=== PATIENT | male | born 1985 | race Caucasian/White ===

== ENCOUNTER 2018-09-04 08:18 | Emergency (ER) | payer OTHER, MEDICAID ==
[2018-09-04] MEDS: ONDANSETRON 4 MG INJ IV (08:32)
[2018-09-04] MEDS: SOD CHLORIDE 0.9% 1,000 ML IV (08:32)
[2018-09-04] MEDS: LORAZEPAM 2 MG INJ IV (08:32)
[2018-09-04] MEDS: HYDROmorphONE 1 MG/ML SYG IV (08:32)
[2018-09-04 08:50] LABS: ADD MAN DIFF? NO
[2018-09-04 08:51] LABS: ABNORMAL IP MESSAGE 1; BASOPHIL # 0.1 10^3/ul (0.0-0.1); BASOPHILS % 0.4 % (0.0-2.0); EOSINOPHILS # 0.1 10^3/ul (0.0-0.5); EOSINOPHILS % 0.4 % (0.0-7.0); HEMATOCRIT 42.1 % (42.0-52.0); HEMOGLOBIN 14.7 g/dl (14.0-18.0); LYMPHOCYTES % 8.7 % (15.0-51.0); MEAN CORPUSCULAR HEMOGLOBIN 29.2 pg (29.0-33.0); MEAN CORPUSCULAR HGB CONC 34.9 g/dl (32.0-37.0); MEAN CORPUSCULAR VOLUME 83.7 fl (82.0-101.0); MEAN PLATELET VOLUME 10.2 fl (7.4-10.4); MONOCYTE # 1.9 10^3/ul (0.3-0.9); MONOCYTES % 8.2 % (0.0-11.0); NEUTROPHIL # 18.5 10^3/ul (1.6-7.5); PLATELET COUNT 225 10^3/UL (140-415); POSITIVE DIFF @See below; RED BLOOD COUNT 5.03 10^6/ul (4.70-6.10); RED CELL DISTRIBUTION WIDTH 12.3 % (11.5-14.5)
[2018-09-04 08:51] LABS: WHITE BLOOD COUNT 22.9 10^3/ul (4.8-10.8)
[2018-09-04 09:11] LABS: INR 0.84; PARTIAL THROMBOPLASTIN TIME 26.3 Sec (23.0-35.0); PROTIME 11.6 Sec (11.9-14.9); PT RATIO 0.9
[2018-09-04 09:22] LABS: ANION GAP 12 (5-13); BLOOD UREA NITROGEN 13 mg/dl (7-20); CALCIUM 8.9 mg/dl (8.4-10.2); CARBON DIOXIDE 21 mmol/L (21-31); CHLORIDE 106 mmol/L (97-110); Estimated GFR > 60 mL/min (>60); GLUCOSE 119 mg/dl (70-220); POTASSIUM 3.9 mmol/L (3.5-5.1); SODIUM 139 mmol/L (135-144)
[2018-09-04 11:07] LABS: ADD UMIC YES; UR ASCORBIC ACID NEGATIVE (NEGATIVE); UR BILIRUBIN (Dip) NEGATIVE (NEGATIVE); UR BLOOD (Dip) 2+ mg/dL (NEGATIVE); UR CLARITY CLEAR (CLEAR); UR COLOR YELLOW (YELLOW); UR GLUCOSE (Dip) NEGATIVE (NEGATIVE); UR KETONES (Dip) NEGATIVE (NEGATIVE); UR LEUKOCYTE ESTERASE (Dip) NEGATIVE Leu/ul (NEGATIVE); UR MUCUS FEW /HPF (NONE SEEN); UR NITRITE (Dip) NEGATIVE (NEGATIVE); UR RBC 2 /HPF (0-5); UR SPECIFIC GRAVITY (Dip) 1.017 (1.003-1.030); UR TOTAL PROTEIN (Dip) NEGATIVE (NEGATIVE); UR UROBILINOGEN (Dip) NEGATIVE (NEGATIVE); UR WBC 9 /HPF (0-5)
[2018-09-04] MEDS: DOXYCYCLINE 100 MG TAB PO (11:30)
[2018-09-04] MEDS: CEFTRIAXONE 250 MG INJ IM (11:31)
== END 2018-09-04 12:22 | disposition home or self-care (01) ==
LOC: E/R 08:18
DX: N45.1 Epididymitis (principal); Z87.891 Personal history of nicotine dependence
CPT/HCPCS: 36415; 76870; 80048; 81001; 85025; 85610; 85730; 96372; 96374; 96375; 99285-25